=== PATIENT | female | born 1995 | race Caucasian/White ===

== ENCOUNTER 2017-01-07 10:52 | Emergency (ER) | payer SELFPAY ==
[2017-01-07] MEDS ORDERED: Sodium Chloride 0.9% 10 ML Syringe FLUSH PRN (11:19)
[2017-01-07] MEDS ORDERED: HYDROmorphone 0.5 MG/0.5 ML Syringe IVPUSH ONE (11:23)
[2017-01-07] MEDS ORDERED: Ondansetron 4 MG/2 ML SDV IVPUSH ONE (11:23)
[2017-01-07] MEDS ORDERED: Sodium Chloride 0.9% 1,000 ML IV SCH (11:30)
--- NOTE | 2017-01-07 11:30 | EDM.PDOC ---
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 Patient is approximately 7 weeks 4 days . Last menstrual cycle was end of September. She has seen Dr. Hernandez with sonogram obtained concerning for miscarriage. She was seen by Dr. Hernandez this past Sunday. They plan for sonogram to be obtained this coming Sunday with D&C scheduled for Sunday if no positive changes. There is no heart rate noted on sonogram. Since being sent home patient's had pain to the suprapubic region that has progressively increased. It radiates to low back. She has not taken any medication such as ibuprofen Tylenol or any prescription pain medications. Pain is described as sharp sensation that waxes and wanes. She describes this as a menstrual cramps. There is no bleeding present. Pain is currently a 7 out of 10. She does note some thin white discharge from her vaginal cavity that has been present since . She is not in a monogamous relationship and has no history of STDs. She does have some pain with urination. She's had a poor appetite with mild nausea with no vomiting. There is an again some mild dysuria with increased frequency noted. Describes a burning sensation. She denies any fever, chest pain, shows breath, diarrhea, or any additional complaints. 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 Denies: Fever, Chills HEENT: Reports: No Symptoms Respiratory: Reports: No Symptoms Cardiovascular: Reports: No Symptoms GI/Abdominal: Reports: Abdominal Pain, Constipation, Nausea. Denies: Diarrhea, Vomiting Musculoskeletal: Reports: Back Pain Skin: Reports: No Symptoms Neurological: Reports: No Symptoms ED EXAM - Physical Exam Exam: See Below Exam Limited By: No Limitations General Appearance: Alert, WD/WN, No Apparent Distress Ears: Hearing Grossly Normal Nose: Normal Inspection Throat/Mouth: Normal Inspection, Normal Oropharynx, Normal Voice, No Airway Compromise Neck: Normal Inspection, Supple Respiratory/Chest: No Respiratory Distress, Lungs Clear, Normal Breath Sounds, No Accessory Muscle Use, Chest Non-Tender Cardiovascular: Normal Peripheral Pulses, Regular Rate, Rhythm, No Murmur GI/Abdominal Exam: Normal Bowel Sounds, Soft, No Organomegaly, No Distention, Tender (suprapubic region, no adnexal pain, no murphys sign or mcburneys point. ) Rectal Exam: Deferred Back Exam: Normal Inspection. No: CVA Tenderness (L), CVA Tenderness (R) Extremities: Normal Inspection Neurological: Alert, Oriented, CN II-XII Intact, Normal Cognition, No Motor/ Sensory Deficits Psychiatric: Normal Affect, Normal Mood Skin Exam: Warm, Dry, Intact, Normal Color Course - Vital Signs Last Recorded V/S: Last Vital Signs Temp 98.9 F 01/07/17 10:57 Pulse 62 01/07/17 15:50 Resp 16 01/07/17 15:50 BP 129/74 01/07/17 15:50 Pulse Ox 100 01/07/17 15:50 - Orders/Labs/Meds Orders: Active Orders 24 hr Category Date Time Status Peripheral IV Care [RC] . DIRECTED Care 01/07/17 11:19 Active OB Transvaginal [US] Stat Exams 01/07/17 13:38 Taken Peripheral IV Insertion Adult [OM.PC] Stat Oth 01/07/17 11:19 Ordered Labs: Laboratory Tests 01/07/17 01/07/17 01/07/17 Range/Units 11:35 11:35 12:40 WBC 10.16 H (3.98-10.04) K/mm3 RBC 4.50 (3.98-5.22) M/mm3 Hgb 13.8 (11.2-15.7) gm/L Hct 40.6 (34.1-44.9) % MCV 90.2 (79.4-94.8) fl MCH 30.7 (25.6-32.2) pg MCHC 34.0 (32.2-35.5) g/dl RDW Std Deviation 42.2 (36.4-46.3) fL Plt Count 227 (182-369) K/mm3 MPV 10.2 (9.4-12.3) fl Neut % (Auto) 73.4 H (34.0-71.1) % Lymph % (Auto) 18.8 L (19.3-51.7) % [facility] % (Auto) 6.4 (4.7-12.5) % Eos % (Auto) 0.9 (0.7-5.8) Baso % (Auto) 0.3 (0.1-1.2) % Neut # (Auto) 7.46 H (1.56-6.13) K/mm3 Lymph # (Auto) 1.91 (1.18-3.74) K/mm3 [facility] # (Auto) 0.65 H (0.24-0.36) K/mm3 Eos # (Auto) 0.09 (0.04-0.36) K/mm3 Baso # (Auto) 0.03 (0.01-0.08) K/mm3 Sodium 140 (136-145) mEq/L Potassium 3.6 (3.5-5.1) mEq/L Chloride 105 (98-107) mEq/L Carbon Dioxide 25 (21-32) mEq/L Anion Gap 13.6 (5-15) BUN 5 L (7-18) mg/dL Creatinine 0.8 (0.55-1.02) mg/dL Est Cr Clr Drug Dosing 101.81 mL/min Estimated GFR (MDRD) > 60 (>60) mL/min BUN/Creatinine Ratio 6.3 L (14-18) Glucose 70 L (74-106) mg/dL Calcium 9.6 (8.5-10.1) mg/dL Total Bilirubin 0.4 (0.2-1.0) mg/dL AST 12 L (15-37) U/L ALT 19 (14-59) U/L Alkaline Phosphatase 58 (46-116) U/L C-Reactive Protein < 0.2 (<1.0) mg/dL Total Protein 7.5 (6.4-8.2) g/dl Albumin 4.1 (3.4-5.0) g/dl Globulin 3.4 gm/dL Albumin/Globulin Ratio 1.2 (1-2) HCG, Quant 78383.0 mIU/mL Urine Color (Yellow) Urine Appearance (Clear) Urine pH (5.0-8.0) Ur Specific [place] (1.005-1.030) Urine Protein (Negative) Urine Glucose (UA) (Negative) Urine Ketones (Negative) Urine Occult Blood (Negative) Urine Nitrite (Negative) Urine Bilirubin (Negative) Urine Urobilinogen (0.2-1.0) Ur Leukocyte Esterase (Negative) Urine RBC (0-5) /hpf Urine WBC (0-5) /hpf Ur Epithelial Cells (0-5) /hpf Urine Bacteria (FEW) /hpf Urine Mucus (FEW) /hpf C trachomatis DNA (PCR) Not detected N gonorrhoeae DNA (PCR) Not detected 01/07/17 Range/Units 12:40 WBC (3.98-10.04) K/mm3 RBC (3.98-5.22) M/mm3 Hgb (11.2-15.7) gm/L Hct (34.1-44.9) % MCV (79.4-94.8) fl MCH (25.6-32.2) pg MCHC (32.2-35.5) g/dl RDW Std Deviation (36.4-46.3) fL Plt Count (182-369) K/mm3 MPV (9.4-12.3) fl Neut % (Auto) (34.0-71.1) % Lymph % (Auto) (19.3-51.7) % [facility] % (Auto) (4.7-12.5) % Eos % (Auto) (0.7-5.8) Baso % (Auto) (0.1-1.2) % Neut # (Auto) (1.56-6.13) K/mm3 Lymph # (Auto) (1.18-3.74) K/mm3 [facility] # (Auto) (0.24-0.36) K/mm3 Eos # (Auto) (0.04-0.36) K/mm3 Baso # (Auto) (0.01-0.08) K/mm3 Sodium (136-145) mEq/L Potassium (3.5-5.1) mEq/L Chloride (98-107) mEq/L Carbon Dioxide (21-32) mEq/L Anion Gap (5-15) BUN (7-18) mg/dL Creatinine (0.55-1.02) mg/dL Est Cr Clr Drug Dosing mL/min Estimated GFR (MDRD) (>60) mL/min BUN/Creatinine Ratio (14-18) Glucose (74-106) mg/dL Calcium (8.5-10.1) mg/dL Total Bilirubin (0.2-1.0) mg/dL AST (15-37) U/L ALT (14-59) U/L Alkaline Phosphatase (46-116) U/L C-Reactive Protein (<1.0) mg/dL Total Protein (6.4-8.2) g/dl Albumin (3.4-5.0) g/dl Globulin gm/dL Albumin/Globulin Ratio (1-2) HCG, Quant mIU/mL Urine Color Light yellow (Yellow) Urine Appearance Slt cloudy H (Clear) Urine pH 7.0 (5.0-8.0) Ur Specific [place] 1.015 (1.005-1.030) Urine Protein Negative (Negative) Urine Glucose (UA) Negative (Negative) Urine Ketones Negative (Negative) Urine Occult Blood Negative (Negative) Urine Nitrite Negative (Negative) Urine Bilirubin Negative (Negative) Urine Urobilinogen 0.2 (0.2-1.0) Ur Leukocyte Esterase Negative (Negative) Urine RBC Not seen (0-5) /hpf Urine WBC 0-5 (0-5) /hpf Ur Epithelial Cells 5-10 H (0-5) /hpf Urine Bacteria Many H (FEW) /hpf Urine Mucus Few (FEW) /hpf C trachomatis DNA (PCR) N gonorrhoeae DNA (PCR) Meds: Medications Discontinued Medications Generic Name Dose Route Start Last Admin Trade Name Freq PRN Reason Stop Dose Admin Hydromorphone HCl 0.5 mg 01/07/17 11:23 01/07/17 11:41 Dilaudid IVPUSH 01/07/17 11:24 0.5 mg ONETIME ONE Administration Sodium Chloride 1,000 mls @ 125 mls/hr 01/07/17 11:30 01/07/17 11:42 Normal Saline IV 125 mls/hr ASDIRECTED SAVANAH Administration Misoprostol 800 mcg 01/07/17 15:14 01/07/17 15:30 Cytotec PO 01/07/17 15:15 800 mcg ONETIME ONE Administration Ondansetron HCl 4 mg 01/07/17 11:23 01/07/17 11:41 Zofran IVPUSH 01/07/17 11:24 4 mg ONETIME ONE Administration Sodium Chloride 10 ml 01/07/17 11:19 01/07/17 11:36 Saline Flush FLUSH 10 ml ASDIRECTED PRN Administration Keep Vein Open - Re-Assessments/Exams Free Text/Narrative Re-Assessment/Exam: Ordered peripheral IV with normal saline, Dilaudid 0.5 mg IVP, and Zofran 4 mg IVP. Initial labs and studies include CBC, chem 14, CRP, UA, GC, and hCG quantitative. Initially ordered x-ray of the abdomen to evaluate stool pattern since patient has not had a bowel movement since this past Sunday which is abnormal. She states her was nonviable and she was having a miscarriage with plans of having a ultrasound tomorrow and D&C on Sunday. This was brought to my attention that a patient's additional ultrasound is to check for viability. We've canceled the x-ray. 01/07/17 12:27 Labs reviewed: White blood cell count 10.16, hemoglobin 13.8, platelets 227, neutrophil percentage 73.4, neutrophil #7.46, sodium 140, potassium 3.6, creatinine 0.8, glucose 70, CRP less than 0.2, hCG quantitative 69,715. Last quantitative hCG was 77,609 dated January 05, 2017. This is trending downward. UA andG/C uncollected. UA negative for infection. 01/07/17 13:[address] Hernandez, requests ob transvaginal ultrasound. If no heart tones present which is highly likely. Order cytotek 800mg PO here in the E.D., another 400mg for the a.m, and percocet for pain. Highly likely patient is starting to cramp due to miscarriage. 01/07/17 15:13 [facility] called and states findings consistent for demise. Ordered cytotek 800mg PO per Dr. Baldwin requests. Patient refuses vaginal examination to evaluate if the cervical os is open or not and if tissue present. Will discharge patient home with instructions as documented. Departure - Departure Time of Disposition: 15:20 Disposition: Home, Self-Care 01 Condition: Good Clinical Impression: Incomplete - Discharge Information Prescriptions: Acetaminophen/oxyCODONE [Percocet 325-5 MG] 1 tab PO Q6H PRN #12 tablet PRN Reason: Pain (Severe 7-10) Misoprostol [Cytotec] 100 mcg PO ONETIME #4 tablet Instructions: Pain Medicine Instructions, [id number] Referrals: Yazan Hernandez MD [Primary Care Provider] - Forms: ED Department Discharge Additional Instructions: As discussed ultrasound did reveal findings consistent for demise. Thus the pain uric currently experiencing is related to process of miscarrying. He received 800 g of Cytotec while in the ED. This is a medication that will facilitate passing of the tissue. Will have you take an additional 400 g tomorrow morning. In addition you were provided Percocet 5-325 which is a narcotic pain medication. Take one tablet every 4-6 hours as needed for pain. Push the fluids. Take ibuprofen Call Dr. Hernandez's office tomorrow morning to schedule a appointment for this week. Return to ED for any new or worsening symptoms. Do not drive today nor while taking the percocets. - My Orders Last 24 Hours: My Active Orders 01/07/17 11:19 Peripheral IV Care [RC] . DIRECTED Peripheral IV Insertion Adult [OM.PC] Stat 01/07/17 13:38 OB Transvaginal [US] Stat - Assessment/Plan Last 24 Hours: My Active Orders 01/07/17 11:19 Peripheral IV Care [RC] . DIRECTED Peripheral IV Insertion Adult [OM.PC] Stat 01/07/17 13:38 OB Transvaginal [US] Stat
[2017-01-07 14:22] LABS: C. TRACHOMATIS BY PCR NOT DETECTED; N. GONORRHOEAE BY PCR NOT DETECTED
[2017-01-07] MEDS ORDERED: Misoprostol 100 MCG Tab PO ONE (15:14)
[2017-01-07 15:52] VITALS: BP 129/74
--- NOTE | 2017-01-08 10:29 | US ---
First trimester obstetrical ultrasound: Multiple real-time images were obtained transvaginally as well as transabdominally. Measurements: LMP: LMP given as 10/19/16, EVGENY 07/26/17, gestational age 11 weeks 3 days Current ultrasound: EVGENY 08/26/17, gestational age 7 weeks 0 days Single intrauterine gestation is seen. Embryo is identified. No heart activity is identified during 1 minute observation. Right ovary not visualized due to bowel. Left ovary is unremarkable. Measurements: Gestational sac: 2.95 cm - 8 weeks 0 days [place]-rump length: 0.97 cm - 7 weeks 0 days Impression: 1. Single intrauterine gestation. Dates as noted above. 2. No heart activity is seen with 1 minute observation. Findings are compatible with nonviable . Diagnostic code #5 Agree with preliminary report issued by [employer] ([employer] preliminary report dictated on 01/07/17, 4:11 PM Central Time)
== END 2017-01-07 15:50 | disposition home or self-care (01) ==
LOC: JD.ED 10:52
DX: O03.4 Incomplete spontaneous abortion without complication (principal); F17.210 Nicotine dependence, cigarettes, uncomplicated; Z79.899 Other long term (current) drug therapy
CPT/HCPCS: 36415; 76817; 80053; 81001; 84702; 85025; 86140; 87491; 87591; 96361; 96374; 96375; 99284; A9270; J1170; J2405; J7040; J7050

== ENCOUNTER 2018-02-05 01:08 | Inpatient (IN) | payer SELFPAY ==
[2018-02-05] MEDS ORDERED: Sodium Chloride 0.9% 1,000 ML IV ONE (01:15)
[2018-02-05] MEDS ORDERED: HYDROmorphone 0.5 MG/0.5 ML SYRINGE IVPUSH STA (02:31)
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
[2018-02-05] MEDS ORDERED: HYDROmorphone 0.5 MG/0.5 ML SYRINGE IVPUSH ONE (06:00)
[2018-02-05] MEDS ORDERED: Ondansetron 4 MG/2 ML SDV IVPUSH PRN ×2 (07:34→07:41)
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
--- NOTE | 2018-02-05 07:45 | CT ---
CT facial bones Technique: Multiple axial sections were obtained through the facial bones. Reconstructed coronal and sagittal images were reviewed. Findings: Mild soft tissue swelling is noted within the left cheek and left periorbital region. Minimal areas of mucosal thickening are again seen within left ethmoid sinuses with small retention cyst noted within right maxillary sinus. No fluid is seen within the paranasal sinuses. No facial bone fracture is identified. Incidental nathaniel bullosa is noted within both middle nasal turbinates. Impression: 1. Sinus findings which are incidental. 2. Soft tissue swelling. 3. No acute facial bone fracture is seen. Diagnostic code #2 I agree with preliminary report issued by [facility] ([facility] preliminary report dictated on 02/05/18, 3:12 AM Central Time)
--- NOTE | 2018-02-05 07:45 | CT ---
CT chest Technique: Multiple axial sections were obtained from above the lung apices inferiorly through the lung bases. Intravenous contrast was utilized. Comparison: No prior chest imaging. Findings: Mediastinum and hilar regions appear within normal limits. No pericardial effusions are seen. No axillary adenopathy is identified. Very minimal left-sided pneumothorax is seen measuring approximately 5%. Small parenchymal densities are seen within the left upper lung and left lower lung most likely representing minimal areas of contusion. Lungs otherwise are clear. No discrete fracture is seen within the ribs. Mild compression deformities noted at T11 and T12 which are felt to be acute. No extension into the posterior vertebral line or posterior elements are seen.. Impression: 1. Minimal left-sided pneumothorax with smaller areas of pulmonary contusion felt to be present within the left upper lung and left lower lung. 2. Mild compression deformities of T11 and T12 with no retrolisthesis fragments. Diagnostic code #5 Agree with preliminary report issued by [facility] ([facility] preliminary report dictated on 02/05/18, 3:10 AM Central Time) CT abdomen and pelvis Technique: Multiple axial sections were obtained from above the dome of the diaphragm inferiorly through the pubic symphysis. Intravenous contrast was utilized. No oral contrast has been given. Findings: Liver shows no focal parenchymal abnormality. Spleen appears within normal limits. Adrenal glands show no nodule. Pancreas appears within normal limits. Gallbladder contains no calcified gallstones. Kidneys show symmetric contrast enhancement without hydronephrosis or mass. Aorta shows no aneurysmal dilatation. No retroperitoneal adenopathy or mesenteric abnormalities are seen. No pelvic mass or adenopathy is seen. Delayed images shows contrast excretion into both ureters with contrast also noted within the bladder. Bone window settings were reviewed which shows no acute osseous abnormality. Impression: 1. Nothing acute is appreciated on CT study of the abdomen and pelvis. Diagnostic code #1 Agree with preliminary report issued by [facility] ([facility] preliminary report dictated on 02/05/18, 3:10 AM Central Time)
--- NOTE | 2018-02-05 07:45 | CT ---
CT cervical spine Technique: Multiple axial sections were obtained from above C1 inferiorly to the bottom of T2. Reconstructed sagittal and coronal images were reviewed. Comparison: No prior cervical spine imaging. Findings: Vertebral body heights and disc spaces are maintained. Vertebral bodies and posterior arches are intact. No fracture is seen. No bony central or bony neural foraminal stenosis is seen. No abnormal subluxation is seen on the reconstructed sagittal images. Small apical pneumothorax is again noted on lung window settings within the left upper chest. Impression: 1. Small left apical pneumothorax. 2. No cervical spine fracture or abnormal subluxation is seen. Diagnostic code #3 Agree with preliminary report issued by [facility] ([facility] preliminary report dictated on 02/05/18, 3:13 AM Central Time)
--- NOTE | 2018-02-05 07:45 | CT ---
Head CT Technique: Multiple axial sections through the brain were obtained. Intravenous contrast was not utilized. Findings: Ventricles along with basal cisterns and sulci over the convexities are within normal limits for the patient's age. No abnormal parenchymal densities are seen. No evidence of intracranial hemorrhage. No midline shift or mass effect is seen. Bone window settings were reviewed which show a small retention cyst within the left maxillary sinus. Minimal areas of mucosal thickening are seen within the left ethmoid sinuses. No acute calvarial abnormality is seen. Impression: 1. Sinus findings which are incidental. No acute intracranial abnormality is seen. Diagnostic code #2 I agree with preliminary report issued by [facility] ([facility] preliminary report dictated on 02/05/18, 3:14 AM Central Time)
[2018-02-05] MEDS ORDERED: Pneumococcal Polyvalent-23 Vaccine 0.5 ML SDV IM ONE (08:45)
[2018-02-05] MEDS: Sodium Chloride 0.9% 1,000 ML IV SCH ×2 (08:46→20:05)
--- NOTE | 2018-02-05 08:50 | CR ---
Chest: Two views of the chest were obtained. Comparison: No previous chest x-ray. Heart size and mediastinum are within normal limits. Lungs are clear. Bony structures are unremarkable. Impression: 1. Nothing acute is seen on two-view chest x-ray. Diagnostic code #1
[2018-02-05] MEDS ORDERED: Enoxaparin 30 MG/0.3 ML Syringe SUBCUT ONE (09:00)
[2018-02-05] MEDS: Ciprofloxacin 0.3% Ophth Soln 2.5 ML Bottle EYELF SCH ×3 (15:15→22:28)
[2018-02-05] MEDS: Acetaminophen/HYDROcodone 325-5 MG Tab PO PRN ×2 (15:19→16:26)
[2018-02-06] MEDS: Ciprofloxacin 0.3% Ophth Soln 2.5 ML Bottle EYELF SCH ×2 (02:58→06:00)
[2018-02-06] MEDS: Acetaminophen/HYDROcodone 325-5 MG Tab PO PRN ×2 (02:59→08:55)
[2018-02-06] MEDS: Sodium Chloride 0.9% 1,000 ML IV SCH (05:59)
[2018-02-06 08:41] VITALS: BP 146/81
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
== END 2018-02-06 09:05 | disposition home or self-care (01) | DRG 200 ==
LOC: JD.ED 01:08 → JD.MS 06:05
PROVIDERS: ADMIT Surgery; ATTEND Surgery
DX: S27.0XXA Traumatic pneumothorax, initial encounter (principal); S22.080A Wedge compression fracture of T11-T12 vertebra, initial encounter for closed fracture; E87.0 Hyperosmolality and hypernatremia; S30.811A Abrasion of abdominal wall, initial encounter; S00.12XA Contusion of left eyelid and periocular area, initial encounter; S00.11XA Contusion of right eyelid and periocular area, initial encounter; M79.1 Myalgia; R07.89 Other chest pain; M54.9 Dorsalgia, unspecified; H54.7 Unspecified visual loss; F17.200 Nicotine dependence, unspecified, uncomplicated; H11.32 Conjunctival hemorrhage, left eye; R11.2 Nausea with vomiting, unspecified; V48.5XXA Car driver injured in noncollision transport accident in traffic accident, initial encounter; F10.129 Alcohol abuse with intoxication, unspecified
CPT/HCPCS: 36415; 70450; 70450-26; 70486; 70486-26; 71046; 71046-26; 71260; 71260-26; 72125; 72125-26; 74177; 74177-26; 80048; 80053; 80306; 81001; 81025; 85007; 85027; 85610; 85730; 96361; 96374; 96376; 99285-25; A9270-GY; G0480; J1170; J1650; J2405; J7040

== ENCOUNTER 2020-07-17 03:48 | Emergency (ER) | payer OTHER ==
[2020-07-17] MEDS ORDERED: Ondansetron 4 MG/2 ML SDV IVPUSH ONE (03:56)
[2020-07-17] MEDS ORDERED: Sodium Chloride 0.9% 1,000 ML IV ONE (03:56)
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
[2020-07-17 04:50] LABS: ACETAMINOPHEN 0 ug/mL (10-30)
[2020-07-17 05:38] VITALS: BP 125/77; PULSE 97
[2020-07-17] MEDS ORDERED: Lactated Ringers 1,000 ML IV ONE (10:05)
== END 2020-07-17 10:50 | disposition home or self-care (01) ==
LOC: JD.ED 03:48
DX: T43.592A Poisoning by other antipsychotics and neuroleptics, intentional self-harm, initial encounter (principal); F10.129 Alcohol abuse with intoxication, unspecified; R41.82 Altered mental status, unspecified; Z20.822 Contact with and (suspected) exposure to COVID-19; Z72.0 Tobacco use
CPT/HCPCS: 36415; 80053; 80143; 80179; 80306; 80307; 81025; 83735; 85007; 85027; 87635; 96374; 99284; J2405; J7030; U0002

== ENCOUNTER 2021-05-23 21:06 | Emergency (ER) | payer SELFPAY ==
[2021-05-23 22:23] VITALS: BP 143/104; PULSE 91
[2021-05-23] MEDS ORDERED: diphenhydrAMINE 50 MG/ML SDV IVPUSH ONE (23:33)
[2021-05-23] MEDS ORDERED: methylPREDNISolone Sodium Succinate 125 MG/2 ML SDV IVPUSH ONE (23:33)
--- NOTE | 2021-05-23 23:35 | EDM.PDOC ---
ED HPI GENERAL MEDICAL PROBLEM - General Chief Complaint: Skin Complaint Stated Complaint: FEVER/HIVES Time Seen by Provider: 05/23/21 23:35 Source of Information: Reports: Patient History Limitations: Reports: No Limitations - History of Present Illness INITIAL COMMENTS - FREE TEXT/NARRATIVE: Patient is a 25-year-old female presenting to the emergency room with a chief complaint of fever and rash. Patient states she was having joint pains discomfort for the past few days and yesterday noticed a rash on her extremities and back. Today, she developed fever. She denies any associated cough, nausea, vomiting, difficulty breathing. Patient states she started on Lamictal approximately 3 weeks ago. She is otherwise not on any new medications. She has not had any new exposures. Patient is sexually active with one partner that she has had for long period of time and is not concerned about any sexually transmitted infections. She used Benadryl today with relief. She is not vaccinated against Covid or flu. Treatments PARTS SALES ADVISOR: Reports: Other (see below) Other Treatments PARTS SALES ADVISOR: benadryl Headache Pain Score (Numeric/FACES): 5 Right Ear Pain Score (Numeric/FACES): 7 - Related Data Allergies Allergy/AdvReac Type Severity Reaction Status Date / Time No Known Allergies Allergy Verified 07/17/20 04:24 Home Meds: Home Meds lamoTRIgine [Lamictal] 75 mg PO DAILY 05/23/21 [History] Past Medical History - Past Health History Medical/Surgical History: Denies Medical/Surgical History HEENT History: Reports: Impaired Vision Other HEENT History: impaired vision, SINGE WINDER History: Reports: - Past Surgical History HEENT Surgical History: Reports: Oral Surgery Other HEENT Surgeries/Procedures: wisdom teeth removal Social & Family History - Family History Family Medical History: No Pertinent Family History Cardiac: Reports: Hypertension Endocrine/Metabolic: Reports: Diabetes, type II - Tobacco Use Tobacco Use Status *Q: Unknown Ever Used Tobacco - Caffeine Use Caffeine Use: Reports: Energy Drinks Other Caffeine Use: 2 per day - Living Situation & Occupation Living situation: Reports: Single, with Significant Other (Boyfriend) Occupation: Employed ([employer]) ED ROS GENERAL - Review of Systems Review Of Systems: See Below Free Text/Narrative/Comment: In addition to that documented in the HPI above, the additional ROS was obtained: Constitutional: Per HPI Eyes: Denies vision changes ENMT: Denies sore throat CV: Denies chest pain Resp: Denies SOB GI: Denies vomiting or diarrhea : Denies painful urination MSK: Denies recent trauma Skin: Per HPI Neuro: Denies new numbness or tingling or weakness Endocrine: Denies unexpected weight loss Heme: Denies bleeding disorders ED EXAM, SKIN/RASH Exam: See Below Text/Narrative:: I have reviewed the triage vital signs Const: Well nourished, well developed, appears stated age Eyes: Pupils Equal and reactive to light bilaterally, no conjunctival injection HENT: No oral mucosal lesions. Pharynx is normal. No signs of trauma or swelling, Neck supple without meningismus CV: Regular Rate Rhythm, Warm, well-perfused extremities RESP: Unlabored respiratory effort GI: soft, non-tender, non-distended, no masses MSK: No gross deformities appreciated Skin: Diffuse macular papular rash along the extremities and torso. There is no purpura noted. There is no evidence of vesicles or sloughing of skin. No rashes noted on her palms. Neuro: Alert, insurance sales specialist II-XII grossly intact. Sensation and motor function of extremities grossly intact. Psych: Appropriate mood and affect. Course - Vital Signs Last Recorded V/S: Last Vital Signs Temp 39.2 C H 05/23/21 22:21 Pulse 91 05/23/21 22:21 Resp 20 05/23/21 22:21 BP 143/104 H 05/23/21 22:21 Pulse Ox 98 05/23/21 22:21 - Orders/Labs/Meds Orders: Active Orders 24 hr Category Date Time Status RPR (SYPHILIS SERO) W/ RFLX [REF] Stat Lab 05/23/21 23:46 Received Labs: Laboratory Tests 05/23/21 05/23/21 05/23/21 Range/Units 23:46 23:46 23:46 WBC 2.95 L (3.98-10.04) K/mm3 RBC 3.93 L (3.98-5.22) M/mm3 Hgb 12.4 (11.2-15.7) gm/dl Hct 37.7 (34.1-44.9) % MCV 95.9 H (79.4-94.8) fl MCH 31.6 (25.6-32.2) pg MCHC 32.9 (32.2-35.5) g/dl RDW Std Deviation 44.4 (36.4-46.3) fL Plt Count 137 L D (182-369) K/mm3 MPV 10.4 (9.4-12.3) fl Neut % (Auto) 61.1 (34.0-71.1) % Lymph % (Auto) 25.1 (19.3-51.7) % Upson % (Auto) 6.4 (4.7-12.5) % Eos % (Auto) 7.1 H (0.7-5.8) Baso % (Auto) 0.3 (0.1-1.2) % Neut # (Auto) 1.80 (1.56-6.13) K/mm3 Lymph # (Auto) 0.74 L (1.18-3.74) K/mm3 Upson # (Auto) 0.19 L (0.24-0.36) K/mm3 Eos # (Auto) 0.21 (0.04-0.36) K/mm3 Baso # (Auto) 0.01 (0.01-0.08) K/mm3 Sodium 139 (136-145) mEq/L Potassium 3.7 (3.5-5.1) mEq/L Chloride 103 (98-107) mEq/L Carbon Dioxide 25 (21-32) mEq/L Anion Gap 14.7 (5-15) BUN 5 L (7-18) mg/dL Creatinine 0.8 (0.55-1.02) mg/dL Est Cr Clr Drug Dosing 102.11 mL/min Estimated GFR (MDRD) > 60 (>60) mL/min BUN/Creatinine Ratio 6.3 L (14-18) Glucose 92 (70-99) mg/dL Calcium 8.0 L (8.5-10.1) mg/dL Total Bilirubin 0.2 (0.2-1.0) mg/dL AST 29 (15-37) U/L ALT 31 (14-59) U/L Alkaline Phosphatase 77 (46-116) U/L Total Protein 6.9 (6.4-8.2) g/dl Albumin 3.8 (3.4-5.0) g/dl Globulin 3.1 gm/dL Albumin/Globulin Ratio 1.2 (1-2) HIV-1 Ab Rapid Screen Negative (NEGATIVE) Influenza Type A RNA (NEGATIVE) Influenza Type B RNA (NEGATIVE) SARS-CoV-2 RNA (RUMA) (NEGATIVE) 05/24/21 Range/Units 00:06 WBC (3.98-10.04) K/mm3 RBC (3.98-5.22) M/mm3 Hgb (11.2-15.7) gm/dl Hct (34.1-44.9) % MCV (79.4-94.8) fl MCH (25.6-32.2) pg MCHC (32.2-35.5) g/dl RDW Std Deviation (36.4-46.3) fL Plt Count (182-369) K/mm3 MPV (9.4-12.3) fl Neut % (Auto) (34.0-71.1) % Lymph % (Auto) (19.3-51.7) % Upson % (Auto) (4.7-12.5) % Eos % (Auto) (0.7-5.8) Baso % (Auto) (0.1-1.2) % Neut # (Auto) (1.56-6.13) K/mm3 Lymph # (Auto) (1.18-3.74) K/mm3 Upson # (Auto) (0.24-0.36) K/mm3 Eos # (Auto) (0.04-0.36) K/mm3 Baso # (Auto) (0.01-0.08) K/mm3 Sodium (136-145) mEq/L Potassium (3.5-5.1) mEq/L Chloride (98-107) mEq/L Carbon Dioxide (21-32) mEq/L Anion Gap (5-15) BUN (7-18) mg/dL Creatinine (0.55-1.02) mg/dL Est Cr Clr Drug Dosing mL/min Estimated GFR (MDRD) (>60) mL/min BUN/Creatinine Ratio (14-18) Glucose (70-99) mg/dL Calcium (8.5-10.1) mg/dL Total Bilirubin (0.2-1.0) mg/dL AST (15-37) U/L ALT (14-59) U/L Alkaline Phosphatase (46-116) U/L Total Protein (6.4-8.2) g/dl Albumin (3.4-5.0) g/dl Globulin gm/dL Albumin/Globulin Ratio (1-2) HIV-1 Ab Rapid Screen (NEGATIVE) Influenza Type A RNA Negative (NEGATIVE) Influenza Type B RNA Negative (NEGATIVE) SARS-CoV-2 RNA (RUMA) Positive H (NEGATIVE) Meds: Medications Discontinued Medications Generic Name Dose Route Start Last Admin Trade Name Ronakq PRN Reason Stop Dose Admin Diphenhydramine HCl 25 mg 05/23/21 23:33 05/23/21 23:57 Diphenhydramine 50 Mg/Ml Sdv IVPUSH 05/23/21 23:34 25 mg ONETIME ONE Administration Methylprednisolone Sodium Succinate 125 mg 05/23/21 23:33 05/23/21 23:57 Methylprednisolone Sodium Succinate 125 Mg/2 Ml Sdv IVPUSH 05/23/21 23:34 125 mg ONETIME ONE Administration Departure - Departure Time of Disposition: 01:25 Disposition: Home, Self-Care 01 Clinical Impression: COVID-19, Drug-induced skin rash - Discharge Information Instructions: Drug Rash, COVID-19 Referrals: Rosemary Pike PA-C [Primary Care Provider] - Forms: ED Department Discharge, ED Return to Work/School Form Additional Instructions: Stop taking the Lamictal. Follow-up with your psychiatrist. Return to the emergency room should you develop ulcers in her mouth or your skin starts to peel. Also monitor your breathing and if you start feeling significantly short of breath, return to the emergency room immediately. Need to be in quarantine for 10 days. Sepsis Event Note (ED) - Focused Exam Vital Signs: Vital Signs Temp Pulse Resp BP Pulse Ox 05/23/21 22:21 39.2 C H 91 20 143/104 H 98 - My Orders Last 24 Hours: My Active Orders 05/23/21 23:46 RPR (SYPHILIS SERO) W/ RFLX [REF] Stat - Assessment/Plan Last 24 Hours: My Active Orders 05/23/21 23:46 RPR (SYPHILIS SERO) W/ RFLX [REF] Stat Assessment:: Patient is a 25-year-old female presented to the emergency room with a rash and fever. She is Covid positive. Her laboratory studies were reviewed and she does demonstrate eosinophilia. Clinically, there is no evidence of Moon- Gene syndrome or TPN. However, I am concerned that this rash is related to her Lamictal use. I did recommend she stop this medication and closely follow- up with her primary and psychiatrist. She is not requiring admission from a Covid standpoint as her oxygen levels and respirations are normal. She will be discharged with outpatient follow-up. Return precautions discussed as usual. Patient is a plan of care.
[2021-05-24 00:57] LABS: CORONAVIRUS COVID-19 NAA POSITIVE (NEGATIVE)
== END 2021-05-24 01:30 | disposition home or self-care (01) ==
LOC: JD.ED 21:06
DX: U07.1 COVID-19 (principal); L27.1 Localized skin eruption due to drugs and medicaments taken internally
CPT/HCPCS: 0240U; 36415; 80053; 85025; 86592; 87449; 96374; 96375; 99283; J1200; J2930; G0433

== ENCOUNTER 2024-03-24 03:47 | Emergency (ER) | payer OTHER ==
[2024-03-24 04:18] LABS: BASOPHILS PERCENT AUTO 0.3 % (0.0-1.0); EOSINOPHILS PERCENT AUTO 0.3 % (0.0-6.0); HEMATOCRIT 39.4 % (37.0-47.0); IMMATURE GRAN ABSOLUTE AUTO 0.06 K/mm3 (0.00-0.05); IMMATURE GRAN PERCENT AUTO 0.4 % (0.0-0.4); LYMPHOCYTES ABSOLUTE AUTO 3.5 K/mm3 (1.0-4.8); LYMPHOCYTES PERCENT AUTO 23.3 % (24.0-44.0); MEAN CORPUSCULAR HEMOGLOBIN 30.4 pg (28.0-32.0); MEAN CORPUSCULAR VOLUME 92.1 fl (83.0-99.0); MEAN PLATELET VOLUME 9.8 fl (9.4-12.3); MONOCYTES ABSOLUTE AUTO 0.7 K/mm3 (0.0-0.8); NEUTROPHILS ABSOLUTE AUTO 10.6 K/mm3 (1.8-7.7); NEUTROPHILS PERCENT AUTO 70.7 % (41.0-71.0); PLATELET COUNT,PLT 296 K/mm3 (150-400); RED BLOOD CELL COUNT 4.28 M/mm3 (4.10-5.30)
[2024-03-24] MEDS: Sodium Chloride 0.9% 1,000 ML IV ONE (04:25)
[2024-03-24 04:30] LABS: BARBITURATE SCREEN,URINE NEGATIVE (CUTOFF=200); BENZODIAZEPINES SCREEN,URINE NEGATIVE (CUTOFF=150); BUPRENORPHINE SCREEN,URINE NEGATIVE (CUTOFF=10); METHADONE SCREEN, URINE NEGATIVE (CUTOFF=200); METHAMPHETAMINES SCREEN, URINE NEGATIVE (CUTOFF=500); OXYCODONE SCREEN,URINE NEGATIVE (CUT0FF=100); THC SCREEN,URINE 20 NG/ML PRESUMPTIVE POSITIVE (CUTOFF=50)
[2024-03-24 04:34] LABS: AMPHETAMINES SCREEN, URINE NEGATIVE (CUTOFF=500)
[2024-03-24 04:50] LABS: A/G RATIO 1.3 (1-2); ALBUMIN 4.5 g/dl (3.4-5.0); ANION GAP 12.7 (5-15); BILIRUBIN TOTAL 0.2 mg/dL (0.2-1.0); CALCIUM 9.1 mg/dL (8.5-10.1); CREATININE 0.6 mg/dL (0.55-1.02); EST CRCL DRUG DOSING (CG) 137.44 mL/min; ETHANOL BLOOD MEDICAL 0.18 gm% (0.00); POTASSIUM,K 4.7 mEq/L (3.5-5.1); PROTEIN TOTAL,TP 8.1 g/dl (6.4-8.2); TSH 4.812 uIU/mL (0.358-3.74)
[2024-03-24 05:15] LABS: T4 FREE 0.94 ng/dL (0.76-1.46)
[2024-03-24] MEDS: Sodium Chloride 0.9% 10 ML Syringe FLUSH PRN (08:58)
[2024-03-24] MEDS: Ondansetron 4 MG/2 ML SDV IVPUSH ONE (08:58)
[2024-03-24 14:20] VITALS: BP 138/78; PULSE 67
== END 2024-03-24 14:44 | disposition home or self-care (01) ==
LOC: JD.ED 03:47
DX: T14.91XA Suicide attempt, initial encounter (principal); T39.1X2A Poisoning by 4-Aminophenol derivatives, intentional self-harm, initial encounter; F10.920 Alcohol use, unspecified with intoxication, uncomplicated; Z79.899 Other long term (current) drug therapy
CPT/HCPCS: 36415; 80053; 80143; 80179; 80306; 80307; 83735; 84439; 84443; 84703; 85025; 93005; 93010; 96361; 96374; 99285; 99285-25; J2405; J3490; J7030